=== PATIENT | male | born 1975 | race Two or more races ===

== ENCOUNTER 2023-05-26 04:46 | Inpatient (IN) | payer MEDICAID ==
[~2023-05-26] VITALS: Ht 185.4 cm; Wt 95.2 kg
[2023-05-26] MEDS ORDERED: NITROGLYCERIN 0.4 MG SL TAB SL ONE (05:15)
[2023-05-26] MEDS ORDERED: ASPirin 325 MG TAB PO ONE (05:15)
[2023-05-26 05:37] LABS: Basophils # (auto) 0 10 ^3/uL (0-0.2); Basophils % (auto) 0.7 % (0.0-2.0); Eosinophils # (auto) 0.1 10 ^3/uL (0-0.8); Eosinophils % (auto) 1.8 % (0.0-7.0); Hematocrit 37.8 % (41.0-53.0); Hemoglobin 13.1 g/dL (13.5-17.5); Lymphocytes # (auto) 1.7 10 ^3/uL (0.4-5.4); Lymphocytes % (auto) 42.6 % (10.0-50.0); Mean Corpuscular Hemoglobin 29.6 pg (28.0-32.0); Mean Corpuscular Hgb Conc. 34.6 g/dL (32.0-36.0); Mean Corpuscular Volume 85.6 fL (80.0-100.0); Monocytes # (auto) 0.2 10 ^3/uL (0-1.3); Monocytes % (auto) 6.2 % (0.0-12.0); Neutrophils # (auto) 1.9 10 ^3/uL (1.6-8.6); Neutrophils % (auto) 48.7 % (37.0-80.0); Nucleated Red Blood Cells % 0.1 %; Red Blood Cells 4.42 10^6/uL (4.5-5.90); Red Cell Distribution Width 13.9 % (11.8-14.3); White Blood Cell 3.9 10^3/uL (4.4-10.8)
[2023-05-26 05:42] LABS: Alanine Aminotransferase 23 U/L (7-40); Albumin 4.1 g/dL (3.2-4.8); Alkaline Phosphatase 59 U/L (46-116); Anion Gap 7.1 (5-15); Aspartate Aminotransferase 18 U/L (13-40); BUN/Creatinine Ratio 7.8 (10.0-20.0); Blood Urea Nitrogen 7 mg/dL (9-23); Carbon Dioxide 24.9 mmol/L (20-30); Chloride 106 mmol/L (98-107); Glucose 155 mg/dL (74-106); Magnesium 1.8 mg/dL (1.6-2.6); Potassium 3.8 mmol/L (3.5-5.1); Sodium 138 mmol/L (136-145)
[2023-05-26 05:43] LABS: Bilirubin, Total 0.5 mg/dL (0.2-1.0); Total Protein 6.9 g/dL (5.7-8.2)
[2023-05-26 06:35] VITALS: PULSE 18; RESP 13; O2SAT 98
[2023-05-26 09:30] VITALS: PULSE 49; RESP 16; O2SAT 98
[2023-05-26] MEDS ORDERED: NITROGLYCERIN 0.4 MG SL TAB SL PRN (12:00)
[2023-05-26] MEDS ORDERED: MORPHINE SULFATE INJ 2 MG/ml SYRG IV PRN (12:00)
[2023-05-26] MEDS ORDERED: DEXTROSE (50%) 50ML SYRG IV PRN (12:45)
[2023-05-26] MEDS ORDERED: ATORVASTATIN 20 MG TAB PO ONE (12:45)
[2023-05-26 12:57] LABS: INR 1.04 (0.9-1.15); Partial Thromboplastin Time 27.4 SEC (24.5-34.5); Prothrombin Time 10.9 sec (9.3-11.8)
[2023-05-26] MEDS ORDERED: PRASUGREL HCL 10 MG TAB PO ONE (15:30)
[2023-05-26] MEDS: InsuLIN REG 1unit/0.01ml Soln (100units/ml) SC SCH ×2 (16:49→21:47)
[2023-05-26] MEDS: ACCU-CHEK COMFORT CURVE STRIP VI SCH ×2 (16:50→21:47)
[2023-05-26 18:51] VITALS: PULSE 50; RESP 16; O2SAT 98
[2023-05-26 18:55] LABS: Urine Bacteria NONE SEEN /hpf (None Seen); Urine Blood Negative /uL (Negative); Urine Clarity Clear (Clear); Urine Color Colorless (Yellow); Urine Protein, UAD Negative (Negative); Urine Specific Gravity 1.008 (1.001-1.035); Urine Urobilinogen Normal (Negative); Urine WBC 2 /hpf (0 - 3)
[2023-05-26 19:30] VITALS: BP 112/67; PULSE 59; RESP 19; TEMP 98.3; O2SAT 96
[2023-05-26 20:00] VITALS: PULSE 51
[2023-05-26 22:00] VITALS: BP 112/67; PULSE 59; RESP 19; TEMP 98.3; O2SAT 96
[2023-05-27 05:00] VITALS: BP 113/70; PULSE 54; RESP 19; TEMP 97.8; O2SAT 96
[2023-05-27] MEDS ORDERED: ISOS1TAB28 PO (05:00)
[2023-05-27] MEDS ORDERED: METF-370 PO (05:00)
[2023-05-27] MEDS ORDERED: ASPI1TAB20 PO (05:00)
[2023-05-27] MEDS ORDERED: ATOR20TA50 PO (05:00)
[2023-05-27] MEDS: ACCU-CHEK COMFORT CURVE STRIP VI SCH ×2 (06:00→11:52)
[2023-05-27] MEDS: InsuLIN REG 1unit/0.01ml Soln (100units/ml) SC SCH ×2 (06:00→11:30)
[2023-05-27 06:18] LABS: Basophils # (auto) 0 10 ^3/uL (0-0.2); Basophils % (auto) 0.6 % (0.0-2.0); Eosinophils # (auto) 0.1 10 ^3/uL (0-0.8); Eosinophils % (auto) 1.8 % (0.0-7.0); Hematocrit 39.7 % (41.0-53.0); Hemoglobin 13.9 g/dL (13.5-17.5); Lymphocytes % (auto) 43.1 % (10.0-50.0); Mean Corpuscular Hemoglobin 29.7 pg (28.0-32.0); Mean Corpuscular Volume 84.9 fL (80.0-100.0); Monocytes # (auto) 0.3 10 ^3/uL (0-1.3); Monocytes % (auto) 6.4 % (0.0-12.0); Neutrophils # (auto) 2.3 10 ^3/uL (1.6-8.6); Neutrophils % (auto) 48.1 % (37.0-80.0); Nucleated Red Blood Cells % 0.2 %; Red Blood Cells 4.67 10^6/uL (4.5-5.90); Red Cell Distribution Width 13.7 % (11.8-14.3); White Blood Cell 4.7 10^3/uL (4.4-10.8)
[2023-05-27 06:24] LABS: Anion Gap 4.3 (5-15); Carbon Dioxide 28.7 mmol/L (20-30); Chloride 107 mmol/L (98-107); Sodium 140 mmol/L (136-145)
[2023-05-27 06:29] LABS: Glucose 154 mg/dL (74-106)
[2023-05-27 06:30] LABS: BUN/Creatinine Ratio 10.9 (10.0-20.0); Blood Urea Nitrogen 11 mg/dL (9-23)
[2023-05-27 06:31] LABS: Magnesium 1.9 mg/dL (1.6-2.6)
[2023-05-27 08:00] VITALS: PULSE 53
[2023-05-27 08:18] LABS: LDL Cholesterol 69 mg/dL (< 100); Triglycerides 166 mg/dL (< 150)
[2023-05-27 08:20] LABS: Cholesterol 126 mg/dL (< 200); HDL Cholesterol 28 mg/dL (40-59)
[2023-05-27 08:58] VITALS: BP 155/79; PULSE 80; RESP 17; TEMP 98.2; O2SAT 94
[2023-05-27] MEDS ORDERED: cefTRIAXone SOD 500 MG VL IM ONE (09:45)
[2023-05-27 09:46] LABS: Hepatitis B Surface Antigen Negative (Negative)
[2023-05-27] MEDS ORDERED: DOXY1CAP57 PO (09:48)
[2023-05-27] MEDS ORDERED: DOXYCYCLINE 100 MG TAB/CAP PO SCH (10:00)
[2023-05-27] MEDS ORDERED: PRASUGREL HCL 10 MG TAB PO SCH (10:00)
[2023-05-27] MEDS ORDERED: ASPirin 81 mg TAB PO SCH (10:00)
[2023-05-27] MEDS ORDERED: ASPirin-EC 81 mg tab PO SCH (10:00)
[2023-05-27 10:07] LABS: Hepatitis C Antibody Negative (Negative)
[2023-05-27 14:52] VITALS: BP 122/66; PULSE 51; RESP 16; TEMP 98.4; O2SAT 96
[2023-05-27 15:07] VITALS: BP 122/66; PULSE 51; RESP 16; TEMP 98.4; O2SAT 96
[2023-05-27] MEDS ORDERED: ATORVASTATIN 20 MG TAB PO SCH (22:00)
[2023-05-28 05:07] LABS: RPR Non Reactive (Non Reactive)
[2023-05-31 21:06] LABS: Treponema pallidum Ab (FTA-Ab) Non Reactive (Non Reactive)
== END 2023-05-27 16:40 | disposition home or self-care (01) | DRG 198 ==
LOC: ER 04:46 → TELE 12:00 → TELE-EAST 18:23
PROVIDERS: ADMIT Internal Medicine Geriatric Medicine; ATTEND Student in an Organized Health Care Education/Training Program
DX: I24.9 Acute ischemic heart disease, unspecified (principal); E11.9 Type 2 diabetes mellitus without complications; I25.10 Atherosclerotic heart disease of native coronary artery without angina pectoris; E66.9 Obesity, unspecified; E78.5 Hyperlipidemia, unspecified; G89.29 Other chronic pain; R00.1 Bradycardia, unspecified; Z98.61 Coronary angioplasty status; Z68.27 Body mass index [BMI] 27.0-27.9, adult
CPT/HCPCS: 36415; 71045; 80048; 80053; 80061; 81001; 82962; 83036; 83735; 83880; 84443; 84484; 85025; 85610; 85730; 86256; 86592; 86703; 86803; 87340; 93005; 93306; G0378; J0696

== ENCOUNTER 2025-07-17 11:34 | Day surgery (SDC) | payer MEDICAID ==
[2025-07-13 15:46] LABS: Hematocrit 41.7 % (41.0-53.0); Hemoglobin 14.1 g/dL (13.5-17.5); Mean Corpuscular Hemoglobin 28.9 pg (28.0-32.0); Mean Corpuscular Volume 85.6 fL (80.0-100.0); Nucleated Red Blood Cells % 0.1 %
[2025-07-13 15:52] LABS: Chloride 104 mmol/L (98-107); Potassium 4.4 mmol/L (3.5-5.1); Sodium 140 mmol/L (136-145)
[2025-07-13 15:53] LABS: Anion Gap 7 (5-15); Carbon Dioxide 29 mmol/L (20-31)
[2025-07-13 15:54] LABS: Calcium 9.3 mg/dL (8.7-10.4)
[2025-07-13 15:59] LABS: BUN/Creatinine Ratio 10.0 (10.0-20.0); Blood Urea Nitrogen 11 mg/dL (9-23)
[2025-07-13 16:06] LABS: Glucose 177 mg/dL (74-106)
[2025-07-13 16:30] LABS: INR 0.98 (0.9-1.15); Partial Thromboplastin Time 26.2 SEC (24.5-34.5); Prothrombin Time 10.4 sec (9.3-11.8)
[~2025-07-17] VITALS: Ht 180.3 cm; Wt 92.5 kg
[~2025-07-17 11:34] MED LIST: ASPI1TAB20 PO; ATOR20TA50 PO; CLOP75TA28 PO; EMPA1TAB3 PO; ISOS1TAB28 PO; METF-370 PO
[2025-07-17] MEDS ORDERED: IOHEXOL 350 MG/ML 100ML IJ ONE (12:01)
[2025-07-17] MEDS ORDERED: HEPARIN IN NS 1000Units/500mL 1,500 ML ONE (12:01)
[2025-07-17] MEDS ORDERED: IODIXANOL 320MG/ML 100ML BTL IV ONE (12:04)
[2025-07-17] MEDS ORDERED: MIDAZOLAM HCL 2MG/2ML 2ml VIAL (1mg/ml) ONE (13:00)
[2025-07-17] MEDS ORDERED: LIDOCAINE 2%HCL (LOCAL ANESTH.) INJ 20ML MDV ONE (13:00)
[2025-07-17] MEDS ORDERED: fentaNYL CITRATE 100 MCG/2 ML VL ONE (13:00)
[2025-07-17] MEDS ORDERED: ANGIOMAX 250 MG VIAL IV ONE (13:24)
[2025-07-17] MEDS ORDERED: SODIUM CHL 0.9% 50 ML ONE (13:24)
[2025-07-17] MEDS ORDERED: CLOPIDOGREL BISULFATE 75 MG TAB ONE (13:45)
[2025-07-17] MEDS: ONDANSETRON HCL 4 MG/2 ML VIAL IV ONE (14:30)
[2025-07-17] MEDS: ONDANSETRON HCL 4 MG/2 ML VIAL ONE (14:32)
--- NOTE | 2025-07-17 16:40 | DVHOP ---
DATE OF SURGERY: 07/17/2025 PROCEDURES TO BE PERFORMED: * Selective left and right coronary angiography. * Ventriculogram. * FFR of the obtuse marginal 1/diagonal and FFR of the right coronary artery. Right coronary artery FFR was 0.78. The obtuse marginal was 0.97. * Thrombectomy with Shockwave device of the proximal to mid RCA with a 3.0 x 13 mm Shockwave thrombectomy balloon, followed by angioplasty with stent placement of the right coronary artery with a 3.5 x 22 mm Antony Preston stent with less than 10% residual stenosis. * Conscious sedation also was given. DESCRIPTION OF PROCEDURE: The patient was prepped and draped in sterile condition. 1% Xylocaine was used to anesthetize the right groin. Using a Cook needle, the right femoral artery was engaged with Seldinger technique. A 6-Cymraes sheath was introduced into the right femoral artery. Using a 6-Cymraes JL4 catheter, 6-Cymraes JR4 catheter, selective left and right coronary angiographies were performed. Using a 6-Cymraes pigtail catheter, ventriculogram was done. Then, the 6-Cymraes diagnostic system was exchanged for a 6-Cymraes interventional system using a 6-Cymraes JR4 guide catheter. RCA was cannulated using a ChoICE PT extra support wire. The lesion was then crossed. FFR was performed. Following that, a 3.0 x 13 mm thrombectomy Shockwave balloon was used to angioplasty the lesion. Then, a 3.5 x 22 mm [place] Preston stent was deployed across the lesion at 18 atmospheres, final dimension of 3.82. There were no complications. The patient tolerated the procedure well. RESULTS: Left main calcified, no flow restrictive lesion. Left anterior descending artery rapid tapering; however, no flow restrictive lesion. Left circumflex artery was occluded. Obtuse marginal 1 has about a 30% narrowing; however, not hemodynamically significant at this time. Right coronary artery, large dominant vessel, greater than 4 mm in diameter, had a 70% narrowing with an FFR of 0.78. The patient underwent thrombectomy with stent placement with a 3.5 x 22 mm [place] Preston stent with less than 10% residual stenosis. The left ventricular ejection fraction was around 45-50% with an LVEDP of 15 mmHg with no gradient across the aortic valve. CONCLUSION: Thus, the patient underwent successful revascularization of the right coronary artery with stent placement with collaterals to the circumflex territory. Sandoval Lindo MD SA/AMA[facility]ANI TID: [id number] RECEIPT: [id number]
--- NOTE | 2025-07-20 08:17 | DVHHP ---
ADMIT DATE: 07/17/2025 HISTORY OF PRESENT ILLNESS: The patient is a 50-year-old patient, who is new to me, who presented to the office with signs and symptoms complex of increasing chest pain, jaw tightness, similar to the discomfort he had when he had his angioplasty done in [facility] a year ago. The patient had three stents, one in the left anterior descending artery and apparently he has two other stents, the location is unknown at this time because I do not have the operative report, nor the stent card indicates where the stents were placed. The patient also has a chronic occlusion, they were not able to revascularize in [facility]. Now, since the patient is having recurrent chest pain, jaw pain radiating to the back, it is felt that rather than undergoing another provocative testing, he should undergo left heart catheterization. The patient will be started on dual-antiplatelet therapy MAYELA with Plavix 75 mg p.o. daily. PAST MEDICAL HISTORY: Pertinent medical history is significant for: * Organic heart disease, (A) Coronary artery disease, (B) History of myocardial infarction, (C) Status post multivessel angioplasty including left anterior descending artery. 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 * Depressed left ventricular ejection-fraction, with EF around 45-50%. * History of ongoing chest discomfort. * Diabetes with diabetic neuropathy, vasculopathy, nephropathy. * Hypertension. * History of TIA-like symptoms. Currently, the patient's symptoms are classic for angina for him. Therefore, we will proceed with left heart catheterization. Risks and benefits were explained to the patient. REVIEW OF SYSTEMS: The patient denies any fever, chills, melena, hematochezia, hematemesis or hemoptysis. No history of hematuria. Denies any visual changes. Denies any recent CVA. The patient's blood sugar is under excellent control. No history of PND or orthopnea. At this time, no history of melena. No history of any irritable bowel syndrome, inflammatory bowel disease, no history of mixed connective tissue disease. No history of movement disorder. No history of seizure disorder. PHYSICAL EXAMINATION: VITAL SIGNS: Blood pressure is 142/80, pulse 72, O2 saturation 96% on room air. HEENT: Pupils are reactive. Funduscopic exam shows no AV nicking, no exudates, no papilledema. Sclerae are anicteric. Extraocular muscles are intact. Oral mucosa moist. Posterior pharynx without any exudates. NECK: No cervical adenopathy or supraclavicular adenopathy. No JVD appreciated. Carotid pulses are 2+ and symmetrical. Normal upstroke and contour. No evidence of any kind of bruit. Thyroid is within normal limits. PULMONARY: Clear to auscultation on all lung vides. Tympanic to percussion. No rhonchi, no wheezes, no egophony. CARDIOVASCULAR: Regular rate without S3 and without S4. PMI is not displaced. There is a soft 1/6 systolic murmur along the left sternal border, radiating to the 2nd right intercostal space. ABDOMEN: Soft, nontender. Normal bowel sounds. No epigastric tenderness. No suprapubic tenderness. No CVA tenderness. Stool guaiac is negative. Liver approximately 5 cm by percussion. NEUROLOGIC: DTRs are 2+ and symmetrical. Cranial nerves 2-12 are within normal limits. Sensory and motor modalities are intact. Negative for pronator drift. Negative for ataxia. Negative for nystagmus. Negative for Babinski as well. SKIN: Unremarkable. EXTREMITIES: 2+ pulses. ASSESSMENT AND PLAN: Thus, the patient with coronary artery disease with history of multivessel angioplasty, now with ongoing symptoms of chest pain, jaw pain, consistent with his anginal equivalent. The patient is now to undergo coronary angiography. Further recommendations after the angiogram. Sandoval Lindo MD SA/EDWARD TID: [id number] RECEIPT: [id number]
== END 2025-07-17 16:15 | disposition home or self-care (01) ==
LOC: CATH 11:34
PROVIDERS: ATTEND Internal Medicine Cardiovascular Disease
DX: R06.02 Shortness of breath (principal); I25.10 Atherosclerotic heart disease of native coronary artery without angina pectoris; Z95.5 Presence of coronary angioplasty implant and graft; Z82.49 Family history of ischemic heart disease and other diseases of the circulatory system; Z79.82 Long term (current) use of aspirin; Z79.01 Long term (current) use of anticoagulants; Z79.84 Long term (current) use of oral hypoglycemic drugs; Z79.899 Other long term (current) drug therapy
CPT/HCPCS: 0523T; 36415; 80048; 85025; 85610; 85730; 92972; 92973; 93458; C1760; C1761; C1769; C1874; C1887; C1894; C9600; J0583; J1644; J2250; J2405; J3010; J7030; Q9967; 99152; 99153